=== PATIENT | male | born 1955 | race Caucasian/White ===

== ENCOUNTER 2023-03-17 09:44 | Emergency (ER) | payer BC, OTHER ==
[2023-03-17 10:27] LABS: Absolute Lymphocytes (CBC) 1.2 K/uL (0.7-4.9); Hematocrit 41.7 % (39.6-49.0); Lymphocytes % 13.3 % (15.3-44.8); MCV 98.8 fL (80-100); MPV 9.9 fL (7.6-11.3); RBC Red Blood Cell Count 4.22 M/uL (4.33-5.43)
[2023-03-17 10:52] LABS: Albumin 3.5 g/dL (3.4-5.0); Bilirubin Total 0.5 mg/dL (0.2-1.0); Potassium 4.2 mEq/L (3.5-5.1); Protein, Total 7.1 g/dL (6.4-8.2)
--- NOTE | 2023-03-17 11:29 | RAD REPORT ---
EXAM DESCRIPTION: CT - Soft Tissue Neck W/Contr CLINICAL HISTORY: SORE THROAT COMPARISON: No comparisons TECHNIQUE All CT scans are performed using dose optimization technique as appropriate and may includ e automated exposure control or mA/KV adjustment according to patient size. FINDINGS: There is mild mucoperiosteal thickening of both maxillary antra. Nasopharyngeal soft tissu es are normal in size and symmetric. Parapharyngeal fat triangles are preserved. No prevertebral absc ess or tonsillar abscess. Notable fatty replacement of left parotid and left submandibular gland is noted relative to the right . This can be seen as age-related changes, however also has been described in Sjgren's syndrome. There is mild is thickening of the skin and subcutaneous soft tissues along the left aspect the of th e face extending inferiorly. Inflammation is also seen left submandibular location. No abscess collec tion suspected. Thickening of the left aryepiglottic fold is noted with underaeration of left piriform sinus and vall ecula. Mild lower cervical degenerative spondylosis. There is significant stenosis evident of the proximal left internal carotid artery estimated at 90%. IMPRESSION: Inflammatory changes are seen along the left aspect of the face and left submandibular l ocation, nonspecific and of unclear etiology. No drainable abscess evident. Fatty infiltration of the left parotid and submandibular gland is a nonspecific finding but can be se en in Sjgren's syndrome. Severe stenosis proximal left internal carotid artery. Asymmetry of the left area epiglottic fold with underaeration of left piriform sinus and vallecula. D irect visualization may be considered on a nonemergent basis for further evaluation of this region.
--- NOTE | 2023-03-17 11:43 | ER ---
Nurse's Notes [facility] Name: David Mac Age: 67 yrs Sex: Male : 1955 Arrival Date: 03/17/2023 Time: 09:44 Bed 16 Private MD: Vikram Jackson Diagnosis: Swelling to the left submandibular space Presentation: 03/17 10:03 Chief complaint: Patient states: left sided neck pain and swelling since last night. eh3 Coronavirus screen: Vaccine status: Patient reports being unvaccinated. Ebola Screen: No symptoms or risks identified at this time. Initial Sepsis Screen: Does the patient meet any 2 criteria? No. Patient's initial sepsis screen is negative. Does the patient have a suspected source of infection? No. Patient's initial sepsis screen is negative. Risk Assessment: Do you want to hurt yourself or someone else? Patient reports no desire to harm self or others. Onset of symptoms was March 17, 2023. 10:03 Method Of Arrival: Ambulatory [facility] 10:03 Acuity: KELLIE 3 eh3 Triage Assessment: 10:04 General: Appears in no apparent distress. comfortable, Behavior is calm, cooperative, eh3 appropriate for age. Pain: Complains of pain in neck. Neuro: Level of Consciousness is awake, alert, obeys commands, Oriented to person, place, time, situation. Cardiovascular: Capillary refill < 3 seconds Patient's skin is warm and dry. Respiratory: Airway is patent Respiratory effort is even, unlabored, Respiratory pattern is regular, symmetrical. GI: Abdomen is round non-distended. Derm: Skin is pink, warm \T\ dry. Musculoskeletal: Circulation, motion, and sensation intact. Historical: - Allergies: 10:04 No Known Allergies; eh3 - PSHx: 10:04 Stented artery; eh3 - Immunization history:: Adult Immunizations not up to date. - Social history:: Smoking status: Patient reports use of chewing tobacco. Patient/guardian denies using alcohol. - Family history:: not pertinent. Screenin:06 [facility] ED Fall Risk Assessment (Adult) Score/Fall Risk Level 0 - 2 = Low Risk. Abuse eh3 screen: Denies threats or abuse. Denies injuries from another. Nutritional screening: No deficits noted. Tuberculosis screening: No symptoms or risk factors identified. Assessment: 10:06 Reassessment: No changes from previously documented assessment. See triage assessment. eh3 Neuro: see triage assessment. 11:00 Reassessment: Patient appears in no apparent distress at this time. Patient and/or eh3 family updated on plan of care and expected duration. Pain level reassessed. Patient is alert, oriented x 3, equal unlabored respirations, skin warm/dry/pink. Vital Signs: 10:03 BP 142 / 96; Pulse 70; Resp 18; Temp 98.5(TE); Pulse Ox 98% on R/A; Weight 104.33 kg; eh3 Height 5 ft. 9 in. ; 11:00 BP 117 / 85; Pulse 62; Resp 16; Pulse Ox 96% on R/A; eh3 10:03 Body Mass Index 33.96 (104.33 kg, 175.26 cm) eh3 ED Course: 09:47 Patient arrived in ED. rg4 09:47 Vikram Jackson DO is Private Physician. rg4 09:54 Ally Lassiter, AKASH is Primary Nurse. eh3 09:54 Jaylen Zafar MD is Attending Physician. rt 10:04 Triage completed. eh3 10:04 Arm band placed on. eh3 10:06 Patient has correct armband on for positive identification. Bed in low position. Call eh3 light in reach. Side rails up X2. Adult w/ patient. Pulse ox on. NIBP on. Door closed. Noise minimized. 10:17 Inserted saline lock: 20 gauge in left forearm, using aseptic technique. ,using aseptic eh3 technique. ED STAFF Blood collected. 11:17 Soft Tissue Neck W/Contr CT In Process Unspecified. EDMS 11:42 Margarita Baxter MD is Referral Physician. rt 11:50 No provider procedures requiring assistance completed. IV discontinued, intact, eh3 bleeding controlled, No redness/swelling at site. Pressure dressing applied. Administered Medications: No medications were administered Medication: 11:50 VIS not applicable for this client. eh3 Outcome: 11:43 Discharge ordered by . rt 11:55 Discharged to home ambulatory, with family. eh3 11:55 Condition: stable 11:55 Discharge instructions given to patient, family, Instructed on discharge instructions, follow up and referral plans. medication usage, Demonstrated understanding of instructions, follow-up care, medications, Prescriptions given X 2. 12:17 Patient left the ED. eh3 Signatures: Dispatcher [employer] Odilia Keller rg4 Ally Lassiter RN RN eh3 Jaylen Zafar MD MD rt
--- NOTE | 2023-03-17 11:43 | EDPHYS ---
Physician Documentation [facility] Name: David Mac Age: 67 yrs Sex: Male : 1955 Arrival Date: 03/17/2023 Time: 09:44 Bed 16 Private MD: Vikram Jackson ED Physician Jaylen Zafar HPI: 03/17 10:40 This 67 yrs old Male presents to ER via Ambulatory with complaints of Neck Pain, <24hrs rt Old, Neck Swelling. 10:40 Patient is a prior history of head and neck cancer treated with chemo and radiation rt about 9 years ago but has not followed up since then. Patient states that he noticed a swelling to the left submandibular region, pain particularly with swallowing. Denies difficulty swallowing, change of voice. Denies cough, dyspnea. Denies other acute complaints at this time, symptoms are moderate in severity, no other aggravating or alleviating factors.. Historical: - Allergies: 10:04 No Known Allergies; eh3 - PSHx: 10:04 Stented artery; eh3 - Immunization history:: Adult Immunizations not up to date. - Social history:: Smoking status: Patient reports use of chewing tobacco. Patient/guardian denies using alcohol. - Family history:: not pertinent. ROS: 10:40 Constitutional: Negative for fever, chills, and weight loss, Respiratory: Negative for rt shortness of breath, cough, wheezing, and pleuritic chest pain, Abdomen/GI: Negative for abdominal pain, nausea, vomiting, diarrhea, and constipation, Skin: Negative for injury, rash, and discoloration, Neuro: Negative for headache, weakness, numbness, tingling, and seizure, Psych: Negative for depression, anxiety, suicide ideation, homicidal ideation, and hallucinations. 10:40 ENT: Positive for Neck pain, swelling. Exam: 10:40 Constitutional: This is a well developed, well nourished patient who is awake, alert, rt and in no acute distress. Head/Face: Normocephalic, atraumatic. Chest/axilla: Normal chest wall appearance and motion. Nontender with no deformity. No lesions are appreciated. Cardiovascular: Regular rate and rhythm with a normal S1 and S2. No gallops, murmurs, or rubs. Normal PMI, no JVD. No pulse deficits. Respiratory: Lungs have equal breath sounds bilaterally, clear to auscultation and percussion. No rales, rhonchi or wheezes noted. No increased work of breathing, no retractions or nasal flaring. Abdomen/GI: Soft, non-tender, with normal bowel sounds. No distension or tympany. No guarding or rebound. No evidence of tenderness throughout. Skin: Warm, dry with normal turgor. Normal color with no rashes, no lesions, and no evidence of cellulitis. MS/ Extremity: Pulses equal, no cyanosis. Neurovascular intact. Full, normal range of motion. Neuro: Awake and alert, GCS 15, oriented to person, place, time, and situation. Cranial nerves II-XII grossly intact. Motor strength 5/5 in all extremities. Sensory grossly intact. Cerebellar exam normal. Normal gait. Psych: Awake, alert, with orientation to person, place and time. Behavior, mood, and affect are within normal limits. 10:40 ENT: Swelling noted to the left submandibular region, not consistent with a lymph node, there is no overlying skin changes, cellulitis. Patient has no oropharyngeal swelling, erythema. No stridor.. Vital Signs: 10:03 BP 142 / 96; Pulse 70; Resp 18; Temp 98.5(TE); Pulse Ox 98% on R/A; Weight 104.33 kg; eh3 Height 5 ft. 9 in. ; 11:00 BP 117 / 85; Pulse 62; Resp 16; Pulse Ox 96% on R/A; eh3 10:03 Body Mass Index 33.96 (104.33 kg, 175.26 cm) 3 MDM: 09:55 Patient medically screened. rt 11:45 Differential diagnosis: Submandibular mass, facial cellulitis, lymphadenopathy, RPA, rt ANESTHESIA ASSISTANT, Nichole's angina, parotidis. Data reviewed: vital signs, nurses notes, lab test result(s), radiologic studies. Care significantly affected by the following chronic conditions: Prior history of head and neck cancer. Counseling: I had a detailed discussion with the patient and/or guardian regarding: the historical points, exam findings, and any diagnostic results supporting the discharge/admit diagnosis, lab results, radiology results, the need for outpatient follow up, Discussed radiologic findings with patient as well as recommendations for direct visualization with scope. Patient agrees to follow-up with ENT as an outpatient. Discussed tobacco cessation with the patient as well.. 03/17 10:04 Order name: CBC with Diff; Complete Time: 10:53 rt 03/17 10:04 Order name: CMP; Complete Time: 10:53 rt 03/17 10:04 Order name: Soft Tissue Neck W/Contr CT; Complete Time: 11:33 rt Administered Medications: No medications were administered Disposition Summary: 03/17/23 11:43 Discharge Ordered Location: Home rt Problem: new rt Symptoms: are unchanged rt Condition: Stable rt Diagnosis - Swelling to the left submandibular space rt Followup: rt - With: Margarita Baxter MD - When: 5 - 6 days - Reason: Discharge Instructions: - Discharge Summary Sheet rt - Parotitis rt Forms: - Medication Reconciliation Form rt - Thank You Letter rt - Antibiotic Education rt - Prescription Opioid Use rt - [email or web address] rt Prescriptions: - Augmentin 875-125 mg Oral Tablet - take 1 tablet by ORAL route every 12 hours for 10 days; 20 tablet; Refills: 0, rt Product Selection Permitted - Prednisone 20 mg Oral Tablet - take 2 tablets by ORAL route once daily for 5 days; 10 tablet; Refills: 0, rt Product Selection Permitted Signatures: Dispatcher [employer] Ally Sy RN RN 3 Jaylen Zafar MD MD rt
[2023-03-17 13:05] VITALS: TEMP 98.5
[2023-03-17 13:11] VITALS: BP 117/85; O2SAT 96
== END 2023-03-17 12:17 | disposition home or self-care (01) ==
LOC: ER 09:44
DX: R22.1 Localized swelling, mass and lump, neck (principal); M54.2 Cervicalgia; F17.220 Nicotine dependence, chewing tobacco, uncomplicated
CPT/HCPCS: 85025; 36415; 80053; 70491; Q9967